=== PATIENT | female | born 1980 | race Caucasian/White ===

== ENCOUNTER 2019-01-09 15:24 | Emergency (ER) | payer SELFPAY ==
[~2019-01-09] VITALS: Ht 165.1 cm; Wt 70.3 kg
[2019-01-09 15:31] VITALS: BP 139/85; Ht 165.1 cm; Wt 70.3 kg
== END 2019-01-09 16:24 | disposition home or self-care (01) ==
LOC: ED 15:24
DX: N61.1 Abscess of the breast and nipple (principal)

== ENCOUNTER 2019-01-14 19:57 | Emergency (ER) | payer SELFPAY ==
[~2019-01-14] VITALS: Ht 157.5 cm; Wt 71.2 kg
[2019-01-14 20:19] VITALS: Ht 157.5 cm; Wt 71.2 kg
[2019-01-14 22:45] VITALS: BP 110/73
== END 2019-01-14 22:45 | disposition home or self-care (01) ==
LOC: ED 19:57
DX: N61.1 Abscess of the breast and nipple (principal)
CPT/HCPCS: J2001